=== PATIENT | male | born 1950 | race Caucasian/White ===

== ENCOUNTER → 2024-10-28 09:02 | Outpatient (REF) | payer MEDICARE, OTHER, SELFPAY | LOC: HWRAD 09:02 | PROVIDERS: ATTENDING PHYSICIAN Family Medicine | DX: R31.0 Gross hematuria (principal) | CPT/HCPCS: 76770 ==

== ENCOUNTER → 2024-12-26 09:56 | Outpatient (REF) | payer MEDICARE, OTHER, SELFPAY ==
[2024-12-26 11:01] LABS: Hematocrit 45.1 % (39.0-52.0); Hemoglobin 15.4 g/dL (13.0-18.0); Mean Corp Hgb Conc. 34.1 g/dL (33.0-37.0); Mean Corpuscular Volume 89.8 fL (80.0-94.0); Platelet Count 263 10^3/uL (130-400); Red Cell Dist. Width 12.4 % (11.5-14.5)
[2024-12-26 11:20] LABS: Blood Urea Nitrogen 14 mg/dl (9-20); Calcium 9.7 mg/dl (8.4-10.2); Carbon Dioxide 31 mmol/L (22-30); Chloride 102 mmol/L (98-107); Glucose 99 mg/dl (70-99); Potassium 4.6 mmol/L (3.5-5.1); Sodium 139 mmol/L (135-145); eGFR > 60.00
== END ==
LOC: SDSPAT 09:56
PROVIDERS: ATTENDING PHYSICIAN Specialist; FAMILY PHYSICIAN Family Medicine
DX: Z01.818 Encounter for other preprocedural examination (principal)
CPT/HCPCS: 36415; 80048; 85027; 93005

== ENCOUNTER 2025-01-02 06:11 | Day surgery (SDC) | payer MEDICARE, OTHER, SELFPAY ==
[2024-12-26 14:06] VITALS: BMI 25.4
[2025-01-02] VITALS (12 sets, daily range): BP systolic 118–166; BP diastolic 61–96; BMI 25.4
[2025-01-02] MEDS: NORMOSOL-R/PLASMALYTE-A 1000 IV (07:30)
[2025-01-02] MEDS: CYSVIEW KIT 100 MG INTRAVES (07:45)
[2025-01-02] MEDS: SYRINGE NON-PUMP 50 MG IRRIG ×2 (09:45)
[2025-01-02] MEDS: SYRINGE NON-PUMP 50 ML IRRIG ×2 (09:45)
[2025-01-02] MEDS: LASIX 10 MG IV (10:27)
== END 2025-01-02 12:00 | disposition home or self-care (01) ==
LOC: SDS 06:11
PROVIDERS: ATTENDING PHYSICIAN Specialist
DX: C67.9 Malignant neoplasm of bladder, unspecified (principal); D09.0 Carcinoma in situ of bladder
CPT/HCPCS: 52235; 51720; 88307; A9589; J9201